=== PATIENT | female | born 1980 | race Caucasian/White ===

== ENCOUNTER 2023-02-09 09:36 | Emergency (ER) | payer BC, SELFPAY ==
[2023-02-09 09:50] VITALS: BP 148/85; PULSE 76; RESP 16; TEMP 36.6; O2SAT 99
--- NOTE | 2023-02-09 09:51 | ED.FEMALEGU ---
HPI - Female Genitourinary General Chief complaint: Upper Respiratory Infection Stated complaint: EARACHE/SWOLLEN GLAND Time Seen by Provider: 02/09/23 09:51 Source: patient Mode of arrival: ambulatory Limitations: no limitations History of Present Illness HPI Narrative: 42 year old female who present to express care with complaints of left earache and eft side of her neck feeling like her gland is swollen since Tuesday and yesterday her back started hurting across her flank area. Pateint reports history of UTI and pyelonephritis in the past and wants urine checked to see if she has infection.Pateint reports tht daughter had Flu B 2 weeks ago. She reports that her throat feels raspy also today. Patient has been taking Claritin D for her symptoms. Patient denies any known fevers. MD elicited complaint: UTI and other (left ear ache and left side of neck) Pertinent past history: other (past UTI) Onset (ago): day(s) (5 days on ear pain 1 day flank pain) Severity: moderate Severity scale (1-10): 3 Vaginal discharge: none Related Data Home Medications Medication Instructions Recorded Confirmed omeprazole 20 mg capsule,delayed 20 mg PO DAILY 02/09/23 02/09/23 release Allergies Allergy/AdvReac Type Severity Reaction Status Date / Time latex Allergy Unknown Rash Verified 02/09/23 09:47 Review of Systems Review of Systems: CONSTITUTIONAL: Denies fever, chills, or sweats.reports left ear pain and left side of neck and raspy throat CARDIOVASCULAR: Denies chest pain, palpitations, or edema. RESPIRATORY: Denies cough or dyspnea. GASTROINTESTINAL: Denies abdominal pain, nausea, vomiting, or diarrhea. GENITOURINARY: Reports no dysuria, frequency, urgency., states voiding small amount Reports flank pain no visible hematuria. SKIN: Denies rash or itching. MUSCULOSKELETAL: Denies back pain or myalgia. Reports CVA tenderness NEUROLOGIC: Denies headache All systems reviewed & are unremarkable except as noted in HPI and below PMFSH Past Medical History Medical History Endometriosis GERD (gastroesophageal reflux disease) Seasonal allergies Surgical History Surgical History H/O arthroscopic knee surgery (~1994) H/O dilation and curettage H/O laparoscopy Family History Family History Father Hypertension Mother Cancer Grandparent Heart problem Social History Social History Smoking status: Current every day smoker Tobacco type: cigarettes Alcohol intake: current Alcohol use details: socially Substance use: never Substance use type: does not use Gender identity (if verbalized by the patient): Female Agree to blood products: Yes Comments At time of signature, agree with nursing past medical, surgical, social and family history. There is no relevant family history pertinent to the presenting complaint Exam Narrative: GENERAL: Well-appearing, well-nourished, and in no acute distress. HEAD: Normocephalic, atraumatic. throat red with no exudates or swelling , TM normal with dull light reflex bilaterally ,no tragal tenderness. NECK: Supple.no lymphadenopathy CHEST: Clear to auscultation. No respiratory distress.SAO2 99% on room air HEART: Regular rate and rhythm. No murmur heard. Normal peripheral pulses. ABDOMEN: Soft, nontender, nondistended, normal active bowel sounds. Positive for CVA tenderness EXTREMITIES: Normal range of motion. No edema. SKIN: Warm, dry, no rash. NEURO: No focal deficits. Alert and oriented x3. Course Course Emergency Course: Patient is aware of diagnosis, understands and agrees to treatment plan.? Anticipatory guidance given.? Patient agrees to follow-up as directed and is aware of reasons to seek care at the emergency department. Portions of this shalom
== END 2023-02-09 10:35 | disposition home or self-care (01) ==
PROVIDERS: Emergency Provider Registered Nurse
DX: J06.9 Acute upper respiratory infection, unspecified (principal); Z20.822 Contact with and (suspected) exposure to COVID-19; F17.210 Nicotine dependence, cigarettes, uncomplicated; N80.9 Endometriosis, unspecified; K21.9 Gastro-esophageal reflux disease without esophagitis
CPT/HCPCS: 81003; 87081; 87426; 87804; 87880; 99213; C9803; G0463

== ENCOUNTER 2025-02-01 10:48 | Outpatient (CLI) | payer BC, SELFPAY ==
--- NOTE | ~2025-02-01 | MM_ITS ---
EXAMINATION: MM screening philip BI w yessenia HISTORY: Screening. TECHNIQUE: Craniocaudal and mediolateral oblique 3-D tomosynthesis images were obtained and synthetic 2-D images were generated. CAD analysis was submitted and interpreted. COMPARISON: None available. BREAST PARENCHYMAL COMPOSITION: Dense: The breast tissue is heterogeneously dense, which may obscure small masses. FINDINGS: There is an asymmetry in the left breast on the MLO view, just above the nipple line in the mid depth. Additionally on the left, there is an asymmetry with possible spicules/distortion seen on the craniocaudal view only, just medial to the nipple line. On the right, there is an asymmetry seen on the craniocaudal view only, Just medial to the nipple line and in the mid depth. There are no suspicious calcifications. There are no skin or nipple abnormalities identified. There is no adenopathy seen on the images submitted. IMPRESSION: 1. Bilateral findings as described. Regarding the mass/asymmetry on the left, On the left, ultrasound should be performed. I suspect that the masslike asymmetry on the MLO view corresponds to an intramammary lymph node laterally. Ultrasound is recommended at approximately 4:00 in the anterior to mid depth. 2. Bilateral asymmetries as described for which additional mammographic and possibly sonographic evaluation is recommended. BI-RADS: 0 - Incomplete - needs additional imaging evaluation and/or prior mammograms for comparison. Reviewed, dictated and finalized at location A. ER [facility] IMPRESSION: 1. Bilateral findings as described. Regarding the mass/asymmetry on the left, O n the left, ultrasound should be performed. I suspect that the masslike asymmet ry on the MLO view corresponds to an intramammary lymph node laterally. Ultraso und is recommended at approximately 4:00 in the anterior to mid depth. 2. Bilateral asymmetries as described for which additional mammographic and pos sibly sonographic evaluation is recommended. BI-RADS: 0 - Incomplete - needs additional imaging evaluation and/or prior mamm ograms for comparison.
--- OUTSIDE RECORDS SUMMARY | 2025-02-01 11:14 | XMS_ITS | Continuity of Care Document ---
Author Organization [facility] [employer], [facility] Address [address] [place] [address] Assessment No assessment recorded. Plan of Treatment Reminders Order Date Submit Date Provider Last Modified By Organization Details Last Modified Time Details Appointments Any 15 2025 01:00P M WALKER Craig Not available Not available Not available Lab None recorded. Referral None recorded. Procedures None recorded. Surgeries None recorded. Imaging None recorded. Medication Orders meclizine 25 mg tablet 2024 025 [facility] [employer] #[id number], [address], [place], [phone], 12/01/2024 05:01:49 losartan 50 mg tablet 2024 025 [email or web address] [employer] [id number], [address], [place], [id number], 11/14/2024 12:41:19 Patient TargetsNo targets recorded. Patient InstructionsNo instructions recorded. Reason for Referral None Reported. Problems Name Problem SNOMED Code Status Onset Date Resolution Date Notes Provider Name and Address Organization Details Recorded Time Essential hypertension 04476483 Active 2024 WALKER Craig [address], [place] [address], [place], [address], [facility] 15:41:52 Endometrium thickened 653328322 Active 2024 WALKER Craig [address], [address], [place], [address], [employer] 15:42:00 Hypertriglycer idemia 840120346 Active 2024 WALKER Craig [address], [address], [place], [address], [employer] [facility] 13:02:09 Bacterial sinusitis 923203849 Active 2024 WALKER Craig [address], [address], [place], [address], [employer] 13:02:49 Purulent bronchitis 89466010 Active 2024 Moshe Neves MD [address], [address], [place], [address], [employer] 10:09:28 Acute cough Active 2024 Moshe Neves MD [address], [address], [place], [address], [employer] 10:10:38 Seasonal allergy 708244468 Active 2024 Moshe Neves MD [address], [address], [place], [address], [employer] [facility] 10:11:34 Benign hypertension 05117383 Active 2024 Moshe Neves MD [address], [address] [place] [address], [place], [address], [employer] [facility] 10:33:41 Vertigo 493990067 Active 2024 WALKER Craig [address], [address], [place], [address], [employer] [facility] 12:36:50 Problem Notes None recorded. Procedures Surgical History Date Name Laterality Status Provider Name and Address Organization Details Recorded Time operative procedure on knee completed Kecia Dhillon RN [place] [employer] [facility] [employer] 09/06/2024 15:06:43 loop electrosurgical excision procedure completed Kecia Dhillon RN [facility] 09/06/2024 15:07:01 Imaging Results None recorded. Procedure Notes None recorded. Medical Equipment None Reported. Allergies Allergen ID Allergen Name Allergen Category Reaction Reaction Severity Criticality Documentation Date Start Date Code Code System Note Provider Name and Address Organization Details Recorded Time 63222 lisinopri l medicatio n Not available Not available Not available 11/14/2024 93570 RxNorm Kecia Dhillon RN [facility], [facility] [employer] [facility] 12:14:54 Medications Name Sig Start Date Stop Date Status Note LastModified by Organization Details LastModified Time losartan 50 mg tablet TAKE 1 TABLET BY MOUTH EVERY DAY DIRECTED active Not Available Not Available No t Available azithromyci n 250 mg tablet TAKE 2 TABLETS (500 MG) BY ORAL ROUTE ONCE DAILY FOR 1 DAY THEN 1 TABLET (250 MG) BY ORAL ROUTE ONCE DAILY FOR 4 DAYS 11/14 completed Not Available Not Available Not Available benzonatate 200 mg capsule Take 1 capsule 3 times a day by oral route as needed for 10 days. 11/08 completed Not Available Not Available Not Available Claritin 10 mg tablet Take 1 tablet every day by oral route as needed. active OTC Not Available Not Available No t Available lisinopril 20 mg tablet TAKE 1 TABLET BY MOUTH EVERY DAY DIRECTED 11/14 completed Not Available Not Available Not Available Medrol (Price) 4 mg tablets in a dose pack Take 1 dose pk every day by oral route as directed for 6 days. 11/04 completed Not Available Not Available Not Available ciprofloxac in 500 mg tablet TAKE 1 TABLET BY MOUTH EVERY 12 HOURS 09/06 completed Not Available Not Available Not Available meclizine 25 mg tablet Take 1 tablet 3 times a day by oral route as needed for 10 days. 12/01 completed Not Available Not Available Not Available lisinopril 10 mg tablet TAKE 2 TABLET BY MOUTH EVERY DAY 10/22 completed Not Available Not Available Not Available omeprazole 20 mg capsule,del ayed release Take 1 capsule every day by oral route. active Not Available Not Available No t Available albuterol sulfate HFA 90 mcg/actuati on aerosol inhaler INHALE 2 PUFFS BY MOUTH EVERY 6 HOURS FOR 15 DAYS NEEDED active Not Available Not Available No t Available fluticasone propionate 50 mcg/actuati on nasal spray,suspe nsion [place] 2 sprays every day by intranasa l route as directed for 30 days. 2024 active Not Available Not Available Not Avai lable amoxicillin 875 mg-potassiu m clavulanate 125 mg tablet TAKE 1 TABLET BY MOUTH EVERY 12 HOURS FOR 7 DAYS DIRECTED 11/14 completed Not Available Not Available Not Available Solu-Medrol (PF) 125 mg/2 mL solution for injection Take 125 mg by injection route for 1 day. 11/14 completed pt marquise well Not Available Not Available Not Available Vitals Date Recorded Body height Body mass index (BMI) Body weight Body temperature Heart rate Respiratory rate Oxygen saturation Pain severity - 0-10 verbal numeric rating [Score] - Reported Systolic And Diastolic Provider Name and Address Organization Details Last Updated DateTime 175.26 cm 30.3 kg/m2 02035.8 9 g 97.1 [degF] 82 /min 20 /min 97 % 0 140/90 mm[Hg] Kecia Dhillon RN [employer] 12:14:40 Social History Question Answer Notes LastModified by Organizat ion Details LastModified Time Tobacco Smoking Status Former Smoker Kecia Dhillon RN [facility], [employer] 09/06/2024 15:10:43 Do You Have An Advance Directive? No Information not available 09/06/2024 What Is Your Level Of Caffeine Consumption? Occasional Information not available 09/06/2024 In The 14 Days Before Symptom Onset, Have You Had Close Contact With A Laboratory-confir med COVID-19 While That Case Was Ill? No Information not available 09/06/2024 In The 14 Days Before Symptom Onset, Have You Had Close Contact With A Person Who Is Under Investigation For COVID-19 While That Person Was Ill? No Information not available 09/06/2024 What Type Of Diet Are You Following? REGULAR Information not available 09/06/2024 Have There Been Any Changes To Your Family Or Social Situation? No Information no t available 09/06/2024 Do You Use Insect Repellent Routinely? No Information not available 09/06/2024 Where Do You Live? SingleLevelHouse Information not available 09/06/2024 Do You Have A Medical Power Of Production Aide? No Information not available 09/06/2024 How Many Children Do You Have? 2 Information not available 09/06/2024 Do You Have Any Pets? Yes Information not available 09/06/2024 What Is Your Relationship Status? Information not available 09/06/2024 Do You Use Your Seat Belt Or Car Seat Routinely? Yes Information not available 09/06/2024 Do You Have Smoke And Carbon Monoxide Detectors In Your Home? Yes Information not available 09/06/2024 Are You Passively Exposed To Smoke? No Information no t available 09/06/2024 Are There Any Smokers In Your House? No Information not available 09/06/2024 Do You Participate In Social Media? Yes Information not available 09/06/2024 Do You Use Sunscreen Routinely? No Information not available 09/06/2024 Have You Recently Traveled Abroad? No Information not available 09/06/2024 Sex: Unknown Functional Status Question Answer Note LastModified by Organizat ion Details LastModified Time Do you use any illicit or recreational drugs? No Information not available 09/06/2024 What is your level of alcohol consumption? Occasional Information not available 09/06/2024 Are you currently employed? Yes Information not available 09/06/2024 What is your occupation? [employer] Information not available 09/06/2024 What is your exercise level? Occasional Information not available 09/06/2024 Mental Status Question Answer Note LastModified by Organization D etails LastModified Time Do you feel stressed (tense, restless, nervous, or anxious, or unable to sleep at night)? [id number] Information not available 09/06/2024 Family History Relationship Description Onset Age of this Age Resolved Age Notes LastModified by Organization Details LastModified Time Father Dementia Not available 09/06/2024 15:04:03 Mother Malignant melanoma Not available 2024 15:04:16 Maternal Aunt Endometrium thickened Not available 2024 15:04:57 Paternal Grandfather Pulmonary emphysema Not available 2024 15:05:23 Medical History Condition Response ENDOMETRIOSIS Y HEADACHES/MIGRAINES Y OTHER # 1 Y ANXIETY DISORDER Y HYPERTENSION Y Gynecological History Statement/Question Response Date of Last Pap Smear Current Control Method IUD Date of Last Colonoscopy Most Recent Mammogram Date of LMP Obstetrics History GPAL:G 0 P 0 0 0 0 Past Encounters Encounter ID Performer Location Encounter Start Date Encounter Closed Date Diagnosis/Indication Diagnosis SNOMED-CT Code Diagnosis ICD10 Code Diagnosis IMO Codes Diagnosis Note [id number] Mohse Neves MD [facility] [address] [place] [address] 10/22/2024 09:55:39 10/22/2024 10:28:48 Purulent bronchitis 45540943 J41.1 2688 Acute cough 0149854680 43767482 R05.0 2322007197 Seasonal allergy 2379586 04 J30.2 70922 Benign hypertension 1072 5009 I10 048628 BP diary education given. [id number] Moshe Neves MD [facility] [address] 11/14/2024 12:02:24 11/14/2024 12:44:30 Essential hypertension 42053537 I10 63162 Lisinopril causing cough, she will stop taking and switch to losartan Vertigo 903382441 R42 03731 Worse when allergies flare Seasonal allergy 9059172 04 J30.2 07972 Advised to d/c sudafed containing productsSh e is also taking flonase daily. Health Concerns Section Related Observation LastModified by Organization Detai ls LastModified Time None Recorded Concern Status LastModified by Organization Details LastModified Time None Recorded Payers Encounter Date Sequence Insurance Name Policy Number Policy [place] Covered Member ID [place] Member ID Guarantor Name 11/14/2024 1 [facility] ([facility] [id number] Tiffanie Anderson [id number] Tiffanie Anderson Notes Date Note Type Note Provider Name and Address Organization Details Recorded Time 11/14/2024 text/html Tiffanie Anderson is a 44 year old female patient here today for a persistent cough. She was seen for this on 10/22/[address] Neves and dx with purulent bronchitis. She completed abx and steroids at this time Notably, she began lisinopril on 08/29/24 She states she has been taking claritin D through the whole summer.She notes when she stops taking this, she will get JULIÁN ear congestion and vertigo. Miriam Garibay, [employer] [address], [address] [address], [place], [address], [facility] 11/14/2024 12:59:02 OBGyn Episode No OBEpisode recorded.
--- OUTSIDE RECORDS SUMMARY | 2025-02-01 11:14 | XMS_ITS | Data Portability ---
Author Organization [place] - [facility] [employer], Main Office Address [address] [place] [address] Assessment No assessment recorded. Plan of Treatment Reminders Order Date Submit Date Provider Last Modified By Organization Details Last Modified Time Details Appointments Any 15 2025 01:00P WALKER Monteiro Not available Not available Not available Lab lipid panel, serum 2024 025 [facility] ([facility]), [address] [place], [address], 09/27/2024 08:06:58 Referral None recorded. Procedures None recorded. Surgeries None recorded. Imaging None recorded. Medication Orders [facility] 25 mg tablet 2024 025 [id number], [address] [place], [place], [id number], 12/01/2024 05:01:49 losartan 50 mg tablet 2024 025 [facility]00180, [address] [place], [place], [id number], 11/14/2024 12:41:19 fluticaso ne propionat e 50 mcg/actua tion nasal spray,lyssa pension 2024 025 [facility] #[id number], [address] [place], [place], [id number], 10/22/2024 10:12:24 benzonata te 200 mg capsule 2024 025 [facility] #[id number], [address], [place], [place], [id number], 11/08/2024 05:01:26 Solu-Medr ol (PF) 125 mg/2 mL solution for injection 2024 [email or web address] Not available 11/14/2024 12:15:30 albuterol sulfate HFA 90 mcg/actua tion aerosol inhaler 2024 025 [facility] #07666, [address] [facility], [place], [place], [id number], 10/22/2024 10:14:27 Zithromax Z-Price 250 mg tablet [address] [facility]51088, [address], [place], [place], [id number], 11/14/2024 12:15:18 Medrol (Price) 4 mg tablets in a dose pack 2024 025 [facility] #06143, [address], [place], [place], [id number], 11/04/2024 05:01:39 lisinopri l 20 mg tablet 2024 025 [facility] #[id number], [address] [facility], [place], [place], [id number], 11/14/2024 12:40:58 amoxicill in 875 mg-potass ium clavulana te 125 mg tablet 2024 025 [email or web address] #36458, [address], [place], [place], [id number], 11/14/2024 12:15:14 Patient TargetsNo targets recorded. Patient InstructionsNo instructions recorded. Reason for Referral None Reported. Results Created Date Observation Date Name Description Value Unit Range Abnormal Flag Note LastModifiedBy Organization Detail LastModifiedTime Result Notes None recorded. Problems Name Problem SNOMED Code Status Onset Date Resolution Date Notes Provider Name and Address Organization Details Recorded Time Essential hypertension 53362919 Active 2024 WALKER Craig [address], [address], [place], [address], [employer] 15:41:52 Endometrium thickened 460872275 Active 2024 WALKER Craig [address], [address], [place], [address], [employer] 15:42:00 Hypertriglycer idemia 316050078 Active 2024 WALKER Craig [address], [address], [place], [address], [employer] 13:02:09 Bacterial sinusitis 066182865 Active 2024 WALKER Craig [address], [address], [place], [address], [employer] 13:02:49 Purulent bronchitis 18805213 Active 2024 Moshe Neves MD [address], [address], [place], [address], [employer] 5 10:09:28 Acute cough Active 2024 Moshe Neves MD [address], [address], [place], [address], [employer] 5 10:10:38 Seasonal allergy 440499041 Active 2024 Moshe Neves MD [address], [address], [place], [address], [employer] 5 10:11:34 Benign hypertension 86738771 Active 2024 Moshe Neves MD [address], [address], [place], [address], [facility] [employer] [facility] 10:33:41 Vertigo 761040947 Active 2024 WALKER Craig [address], [address], [place], [address], [facility] [employer] [facility] 12:36:50 Problem Notes None recorded. Procedures Surgical History Date Name Laterality Status Provider Name and Address Organization Details Recorded Time operative procedure on knee completed Kecia Dhillon RN [facility] [employer] [facility] 09/06/2024 15:06:43 loop electrosurgical excision procedure completed Kecia Dhillon RN [facility] [employer] [facility] 09/06/2024 15:07:01 Imaging Results None recorded. Procedure Notes None recorded. Medical Equipment None Reported. Allergies Allergen ID Allergen Name Allergen Category Reaction Reaction Severity Criticality Documentation Date Start Date Code Code System Note Provider Name and Address Organization Details Recorded Time 74261 lisinopri l medicatio n Not available Not available Not available 11/14/2024 19646 RxNorm Kecia Dhillon RN null, [facility] [employer] [facility] 12:14:54 Medications Name Sig Start Date Stop [...] propionate 50 mcg/actuati on nasal spray,suspe nsion [place] 2 sprays every day by intranasa l [...] Available Not Available Vitals Date Recorded Body weight Body mass index (BMI) Body height Body temperature Heart rate Respiratory rate Oxygen saturation Pain severity - 0-10 verbal numeric rating [Score] - Reported Systolic And Diastolic Provider Name and Address Organization Details Last Updated DateTime 5 36149.1 9 g 30.3 kg/m2 175.26 cm 97.5 [degF] 85 /min 20 /min 96 % 0 172/102 mm[Hg] Kecia Dhillon RN [place] - [facility] 5 15:09:20 Date Recorded Body height Body mass index (BMI) Body weight Body temperature Heart rate Respiratory rate Oxygen saturation Pain severity - 0-10 verbal numeric rating [Score] - Reported Systolic And Diastolic Provider Name and Address Organization Details Last Updated DateTime 5 175.26 cm 30.2 kg/m2 17342.2 4 g 97.3 [degF] 82 /min 20 /min 98 % 5 142/96 mm[Hg] Kecia Dhillon RN [facility] [employer] [facility] 12:38:05 Date Recorded Oxygen saturation Provider Name and Address Organization Details Last Updated DateTime 10/22/2024 94 % Jean-Pierre Mercado [address] [facility], [facility] [address], [place], [address], [facility] [employer] [facility] 10/22/2024 10:33:15 Date Recorded Body height Body mass index (BMI) Body weight Body temperature Heart rate Systolic And Diastolic Provider Name and Address Organization Details Last Updated DateTime 175.26 cm 29.7 kg/m2 50722.0 7 g 97.2 [degF] 93 /min 144/100 mm[Hg] Mone Navarro RN [facility] [employer] [facility] 10:04:28 Date Recorded Body height Body mass index (BMI) Body weight Body temperature Heart rate Respiratory rate Oxygen saturation Pain severity - 0-10 verbal numeric rating [Score] - Reported Systolic And Diastolic Provider Name and Address Organization Details Last Updated DateTime 175.26 cm 30.3 kg/m2 10910.8 9 g 97.1 [degF] 82 /min 20 /min 97 % 0 140/90 mm[Hg] Kecia Dhillon RN [facility] [employer] [facility] 12:14:40 Social History Question Answer Notes LastModified by Organizat ion Details LastModified Time Tobacco Smoking Status Former Smoker Kecia Dhillon RN [facility] 09/06/2024 15:10:43 Do You Have An Advance [...] Do You Have A Medical Power Of Powder Blender? No Information not available 09/06/2024 How Many [...] anxious, or unable to sleep at night)? [id number] Information not available 09/06/2024 Family History Relationship Description Onset Age of this Age Resolved Age Notes LastModified by Organization Details LastModified Time Father Dementia Not available 09/06/2024 15:04:03 Mother Malignant melanoma Not available 2024 15:04:16 Maternal Aunt Endometrium thickened Not available 2024 15:04:57 Paternal Grandfather Pulmonary emphysema Not available 2024 15:05:23 Medical History Condition Response ENDOMETRIOSIS Y OTHER # 1 Y HEADACHES/MIGRAINES Y HYPERTENSION Y ANXIETY DISORDER Y Gynecological History Statement/Question Response Date of Last Pap Smear Current Control Method IUD Date of Last Colonoscopy Most Recent Mammogram Date of LMP Obstetrics History GPAL:G 0 P 0 0 0 0 Past Encounters Encounter ID Performer Location Encounter Start Date Encounter Closed Date Diagnosis/Indication Diagnosis SNOMED-CT Code Diagnosis ICD10 Code Diagnosis IMO Codes Diagnosis Note [id number] Moshe Neves MD [address] [address] 09/06/2024 14:40:30 09/06/2024 17:05:51 Physical examination 2937359 Z00.00 103386 [facility] reviewedDi scussed diet and exercisePa tient questions answered Essential hypertension 47010508 I10 98862 Will continue to monitor BP at homeWill increase lisinopril to 20 mg daily Endometrium thickened 44 1582859 R93.89 [id number] Managed by OBGYN [id number] Moshe Neves MD [facility] [address] [place] [address] 09/20/2024 12:23:11 09/20/2024 13:59:51 Essential hypertension 74939421 I10 63635 Will continue to monitor BP at homeWill increase lisinopril to 20 mg daily Hypertriglyceridemia 302 325813 E78.1 799893 Not fasting for last labs Bacterial sinusitis 7034 82583 J32.9 B96.89 4044068 x 2 weeks [id number] Moshe Neves MD [facility]_[address] [address] 10/08/2024 10:05:46 10/10/2024 09:51:25 [id number] Moshe Neves MD [facility]_[address] [address] 10/22/2024 09:55:39 10/22/2024 10:28:48 Purulent bronchitis 21788198 J41.1 2688 Acute cough 9375904050 22941690 R05.8 2628957270 Seasonal allergy 8539751 04 J30.2 91296 Benign hypertension 1072 5009 I10 921196 BP diary education given. [id number] Moshe Neves MD [facility]_[address] [address] 11/14/2024 12:02:24 11/14/2024 12:44:30 Essential hypertension 52691965 I10 72647 Lisinopril causing cough, she will stop taking and switch to losartan [employer]igo 686158735 R42 91756 Worse when allergies flare Seasonal allergy 9573649 04 J30.2 74308 Advised to d/c sudafed containing productsSh e is also taking flonase daily. Health Concerns Section Related Observation LastModified by Organization Detai ls LastModified Time None Recorded Concern Status LastModified by Organization Details LastModified Time None Recorded Advance Directives Directive N: Payers Insurance Date Sequence Insurance Name Policy Number Policy Jefferson Covered Member ID Jefferson Member ID Guarantor Name 09/06/2024 1 [facility] - DOS PRIOR TO 2020 (MEDICAID REPLACEMENT - HMO) Tiffanie Anderson [id number] Tiffanie Kelin Anderson 11/11/2024 1 [facility] (PPO) [id number] Tiffanie Anderson [id number] Tiffanie Anderson Notes Date Note Type Note Provider Name and Address Organization Details Recorded Time 09/06/2024 text/html Tiffanie Anderson is a 44 year old female patient here today to establish care. She has a WWE last week at [facility] and was told her BP was took high. They initiated lisinopril 10 mg daily. Since taking lisinopril, her BP has ranged 120s-150s/80s-100s. We will increase to lisinopril 20 mg PO daily. She will take 2 of her 10 mg tabs.She notes decreased headaches since starting the medication.Prior to starting lisinopril, she was having daily headaches, dizziness, nausea, and tinnitus. She states she can feel when her BP is high. She states at her WWE she was told she had a risk of diabetes following her blood work. She has a history of endometriosis. She does get vertigo on occasion. She takes claritin daily to help with this. Flu shot: declinesCOVID vaccines: x1Tdap: unsureMammogram: scheduledWWE: olonoscopy next year WALKER Craig [address] [employer], [place], [address], [employer] 09/06/2024 16:54:56 09/20/2024 text/html Tiffanie Anderson is a 44 year old female patient here today for a 1 month FU Concerns with sinus symptoms x 2 weeks. Congestion, headaches, full ears. History of hypertension. This is _ controlled. Patient does not check BP readings at home.BP on arrival today is 142/96.Patient declines headaches, tinnitus, light headedness, fatigue. Recent labs indicated prediabetes and elevated triglycerides. She was not fasting for these labs. Flu shot: declinesCOVID vaccines: x1Tdap: unsureMammogram: scheduledWWE: 4Colonoscopy next year WALKER Craig [address], [address], [place], [address], [employer] 09/20/2024 14:08:02 10/22/2024 text/html ACV: C/o cough, congestion, greenish sputum, fatigue for last 1 week. Pt has been doing otc meds, but still not getting better. Pt gets this every few months. Pt has not taken her BP med today yet. Moshe Neves MD [address], [address], [place], [address], [facility] [employer] [facility] 10/22/2024 10:35:26 11/14/2024 text/html Tiffanie Anderson is a 44 [...] JULIÁN ear congestion and vertigo. Miriam Garibay, CREDIT CARD SPECIALIST [address] [facility], [address], [place], [address], [employer] 11/14/2024 12:59:02 OBGyn Episode No OBEpisode recorded.
--- OUTSIDE RECORDS SUMMARY | 2025-02-01 11:14 | XMS_ITS | Clinical Summary ---
Author Organization [facility] Care Team Providers Care Assembling Fabricator Name Role Phone Unavailable Primary Care Provider Unavailabl e Social History Tobacco Use Types Packs/Day Years Used Date Smoking Tobacco: Never Assessed Comments Unknown Sex and Gender Information Value Date Recorded Sex Assigned at Not on file Legal Sex Female 9:08 PM CDT Gender Identity Not on file Sexual Orientation Not on file Plan of Treatment Not on file
--- OUTSIDE RECORDS SUMMARY | 2025-02-01 11:14 | XMS_ITS | Data Portability ---
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 Patient will come back in a year unless there are new symptoms. [email or web address] Not available 08/25/2023 16:13:30 08/29/2024 08/29/2024 Annual gynecological exam performed. Patient will come back in a year unless there are new symptoms. [email or web address] Not available 08/29/2024 16:10:27 Plan of Treatment Reminders Order Date Submit Date Provider Last Modified By Organization Details Last Modified Time Details Appointments None recorded. Lab TSH, serum or plasma 2024 025 [facility] (Lab), [address], [place], [address], 5 07:34:28 CBC w/ auto diff 2024 025 [facility] (Lab), [address], [place], [address], 5 07:34:29 lipid panel, blood 2024 025 [facility] (Lab), [address], [place], [address], 5 07:34:30 CMP, serum or plasma 2024 025 [facility] (Lab), [address], [place], [address], 5 07:34:29 HbA1c (hemoglobin A1c), blood 2024 025 [facility] (Lab), [address], [place], [address], 5 07:34:30 CT + NG + TV, RNA, unspecified specimen 2024 025 [facility] (Lab), [address], [place], [address], 5 12:52:47 culture, urine 2023 024 [facility] (Lab), [address], [place], [address], 4 07:36:30 urinalysis, dipstick 2023 024 [email or web address] [place], [address], [address], [place], [address], 4 11:04:49 hormone panel, serum or plasma 2023 024 [facility] (Lab), [address], [place], [address], 4 09:49:52 Referral None recorded. Procedures None recorded. Surgeries None recorded. Imaging MAMMO, screening, digital, bilateral 2024 025 [email or web address] [facility], [address], [place], [address], 5 10:38:01 MAMMO, screening, digital, bilateral 2023 024 [facility], [address], [place], [address], 4 05:01:13 Medication Orders lisinopril 10 mg tablet 2024 025 [id number], [address], [place], [place], [id number], 5 16:38:06 nitrofurant oin monohydrate /macrocryst als 100 mg capsule 2023 025 [facility] #[id number], [address], [place], [place], [id number], 5 16:11:11 Macrobid 100 mg capsule 2023 024 [email or web address] [facility] #[id number], [address] [facility], [place], [place], [id number], 5 16:10:33 Patient TargetsNo targets recorded. Patient InstructionsNo instructions recorded. Reason for Referral None Reported. Results Created Date Observation Date Name Description Value Unit Range Abnormal Flag Note LastModifiedBy Organization Detail LastModifiedTime 08/25/19 24 08/25/2023 FSH, LH, ESTRA DIOL estradiol 84.7 pg/mL This assay was perfo rmed using [employer] ratio n reage nts and test kits. Value s obtai elizabeth with other assay metho ds or kits canno t be used inter martins eably . Femal e Estra diol Range s: Folli cular phasE 12.4- 233 pg/mL Ovula tion phasE 41.0- 398 pg/mL Lutea l phasE 22.3- 341 pg/mL Postm enopa usal <5-13 8 pg/mL Healt hy Pregn ant Women 1st Trime ster 154-3 243 pg/mL 2nd Trime ster 1561- 46716 pg/mL 3rd Trime ster 8525- >3000 0 pg/mL Not Available [facility] (Lab) [address], [place], [address], 08/26/2023 09:49:51 08/25/19 24 08/25/2023 FSH, LH, ESTRA DIOL FSH 6.5 mIU/m L This assay was perfo rmed using [employer] ratio n reage nts and test kits. Value s obtai elizabeth with other assay metho ds or kits canno t be used inter martins eably . Femal es Folli cular : 3.5-1 2.5 mIU/m L Ovula tion: 4.7-2 1.5 mIU/m L Lutea l: 1.7-7 .7 mIU/m L Postm enopa use: 25.8- 134.8 mIU/m L Not Available [facility] (Lab) [address] [facility], [place], [address], 08/26/2023 09:49:51 08/25/19 24 08/25/2023 FSH, LH, ESTRA DIOL LH 4.2 mIU/m L This assay was perfo rmed using [employer] ratio n reage nts and test kits. Value s obtai elizabeth with other assay metho ds or kits canno t be used inter [facility] . Femal es Mid-F ollic ular: 2.4-1 2.6 mIU/m L Mid-C ycle: 14.0- 95.6 mIU/m L Mid-L uteal : 1.0-1 1.4 mIU/m L Postm enopa use: 7.7-5 8.5 mIU/m L Not Available [facility] (Lab) [address] [facility], [place], [address], 08/26/2023 09:49:51 08/25/19 24 08/25/2023 IMAGE GUIDE D PAP AND HPV REGAR DLESS image guided Pap, HPV regardless of Pap result SEE RESULT S BELOW CASE REPOR T: Cytol ogy Gynec ologi claire Repor t Case: [id number] Autho everardo g Provi siri: Dafne Kang, PATIENT SERVICES COORDINATOR Colle cted: 08/24 1712 Order ing Locat ion: [place] Path[facility] Recei sreedhar: 08/25 0841 First Karlos n: Domitila Argueta ica Speci men: Karlos feliz Pap - Image d, Cervi x STATE MENT OF ADEQU ACY: Satis facto ry for evalu ation Trans forma tion zone compo nent prese nt ----- ----- ----- ----- ----- ----- ----- ----- ----- ----- ----- ----- ----- ----- ----- ----- ----- ---- FINAL DIAGN OSIS: Negat chevy for Intra epith elial Debbie ramírez or Matt gaspar ([facility]) . Shift in kathryn sugge stive of bacte rial vagin osis. Elect rich toribio by Domitila Argueta ica on 2023 at 11:00 AM ----- ----- ----- ----- ----- ----- ----- ----- ----- ----- ----- ----- ----- ----- ----- ----- ----- ---- HPV RESUL TS: HPV mRNA E6/E7 : No HPV mRNA Detec lorna NOTE: This high risk HPV mRNA assay detec ts fourt een high- risk HPV types (16, 18, 31, 33, 35, 39, 45, 51, 52, 56, 58, 59, 66, 68) witho ut diffe renti ation . COMME NT: This speci men was revie wed by a Cytot echno logis t and/o r Patho logis t (as indic ated in this repor t) after evalu ation using the Thinp rep Imagi ng Syste m. CLINI CLAIRE INFOR MATIO N: Menst rual Statu s: LMP (if appli cable ): Clini claire Histo ry/Pr eviou s Pap: Type of Neopl naty (if appli cable ): Signi fican t Clini claire Findi ngs: Other Histo ry: Hormo junior (if appli cable ): PAP EDUCA JEMIMA L NOTE: The Pap Test is a scree tray test with an inher ent false negat chevy rate. Liqui d-bas ed sampl ing may decre ase, but will not elimi alanis, false negat chevy resul ts. A negat chevy resul t does not precl ude the prese nce and/o r devel opmen t of disea se, since the prese nce of abnor mal cells in the sampl e depen ds on the locat ion of the lesio n and sampl ing techn ique. Sj nued regul ar scree tray is the best metho d of cance r preve ntion . If repor lorna cytol ogic findi ng do not corre late with physi claire and/o r histo rical findi ngs, furth er inves tigat ion is recom henry d, as clini mare gallegos nted. Not Available [facility] (Lab) [address] [facility], [place], [address], 08/28/2023 12:03:57 10/25/19 24 10/25/2023 CULTU RE: URINE result report SEE RESULT S BELOW abnormal Test: Cultu re: Urine Speci men Sourc e: Urine - Clean Catch Speci men Type: Urine Speci men Date: 2023 1039 Resul t Date: 2023 0721 Resul t Statu s: Final resul t Abnor mal: Yes Resul anthony Lab: [facility] [address] [facility] [address] Tel: CULTU RE ----- ----- ----- --- 25,00 0-50, 000 CFU/m l [place] a coli (Abno rmal) ALVIN PTIBI LITY ----- ----- ----- --- E[place] a coli METHO D MADAY ----- ----- ----- ----- ----- ---- ----- ----- ----- ----- ----- AMPIC ILLIN <=8 ug/mL Susce ptibl e AMPIC ILLIN /SULB ACTAM <=4 ug/mL Susce ptibl e AZTRE ONAM <=4 ug/mL Susce ptibl e CEFAZ OSCAR <=2 ug/mL Susce ptibl e CEFEP TERRY <=2 ug/mL Susce ptibl e CEFTA ZIDIM E <=1 ug/mL Susce ptibl e CEFTR IAXON E <=1 ug/mL Susce ptibl e CIPRO FLOXA ERNESTO <=0.2 5 ug/mL Susce ptibl e GENTA MICIN <=2 ug/mL Susce ptibl e LEVOF LOXAC IN <=0.5 ug/mL Susce ptibl e MEROP ENEM <=1 ug/mL Susce ptibl e NITRO FURAN TOIN <=32 ug/mL Susce ptibl e PIPER ACILL IN/TA ZOBAC MENDOZA <=8 ug/mL Susce ptibl e TOBRA MYCIN <=2 ug/mL Susce ptibl e TRIME THOPR IM/FRIAS LFAME THOXA ZOLE <=0.5 ug/mL Susce ptibl e Not Available [facility] (Lab) [address] [facility], [place], [address], 10/28/2023 08:25:58 10/25/19 24 10/25/2023 urina lysis , dipst ick Leukocytes ++ Not Available [facility] [address], [place], [address], 10/25/2023 11:04:23 10/25/19 24 10/25/2023 urina lysis , dipst ick Nitrite + Not Available [facility] [address], [place], [address], 10/25/2023 11:04:23 10/25/19 24 10/25/2023 urina lysis , dipst ick Protein + Not Available [facility] [address], [place], [address], 10/25/2023 11:04:23 10/25/19 24 10/25/2023 urina lysis , dipst ick pH 5 Not Available [facility] [address], [place], [address], 10/25/2023 11:04:23 10/25/19 24 10/25/2023 urina lysis , dipst ick Blood +++ Not Available [facility] [address], [place], [address], 10/25/2023 11:04:23 10/25/19 24 10/25/2023 urina lysis , dipst ick Specific [place] 1.[address] [facility] [address], [place], [address], 10/25/2023 11:04:23 02/21/20 24 02/21/2024 CULTU RE: URINE result report SEE RESULT S BELOW Test: Cultu re: Urine Speci men Sourc e: Urine - Clean Catch Speci men Type: Urine Speci men Date: 02/20 1632 Resul t Date: 02/22 0632 Resul t Statu s: Final resul t Abnor mal: No Resul ting Lab: [facility] [address] [facility] [address] Tel: CULTU RE ----- ----- ----- --- No growt h in 1 day (dete ction level of 10,00 0 colon ies / ml.) Not Available [facility] (Lab) [address] [place], [address], 02/23/2024 07:36:30 08/30/19 25 08/29/2024 TSH, REFLE X FREE T4 TSH 2.58 uIU/m L 0.30-5 .33 Not Available [facility] (Lab) [address] [place], [address], 08/30/2024 07:34:28 08/30/19 25 08/29/2024 CBC W/DIF F WBC 11.0 10'3/ uL 3.5-10 .5 high Not Available [facility] (Lab) [address], [place], [address], 08/30/2024 07:34:29 08/30/19 25 08/29/2024 CBC W/DIF F RBC 4.54 10'6/ uL (based on docume nted legal sex) 3.80-5 .20 Not Available [facility] (Lab) [address], [place], [address], 08/30/2024 07:34:29 08/30/19 25 08/29/2024 CBC W/DIF F HGB 12.6 g/dL (based on docume nted legal sex) 11.6-1 5.4 Not Available [facility] (Lab) [address], [place], [address], 08/30/2024 07:34:29 08/30/19 25 08/29/2024 CBC W/DIF F HCT 39.4 % (based on docume nted legal sex) 34.0-4 5.0 Not Available [facility] (Lab) [address], [place], [address], 08/30/2024 07:34:29 08/30/19 25 08/29/2024 CBC W/DIF F MCV 86.8 fL 80.0-9 9.0 Not Available [facility] (Lab) [address], [place], [address], 08/30/2024 07:34:29 08/30/19 25 08/29/2024 CBC W/DIF F MCH 27.8 pg 27.0-3 4.0 Not Available [facility] (Lab) [address] [place], [address], 08/30/2024 07:34:29 08/30/19 25 08/29/2024 CBC W/DIF F MCHC 32.0 g/dL 32.0-3 5.5 Not Available [facility] (Lab) [address], [place], [address], 08/30/2024 07:34:29 08/30/19 25 08/29/2024 CBC W/DIF F RDW 13.2 % 11.0-1 5.0 Not Available [facility] (Lab) [address] [facility], [place], [address], 08/30/2024 07:34:29 08/30/19 25 08/29/2024 CBC W/DIF F plt 338 10'3/ uL 150-40 0 Not Available [facility] (Lab) [address], [place], [address], 08/30/2024 07:34:29 08/30/19 25 08/29/2024 CBC W/DIF F MPV 10.7 fL 8.8-12 .1 Not Available [facility] (Lab) [address] [facility], [place], [address], 08/30/2024 07:34:29 08/30/19 25 08/29/2024 CBC W/DIF F NRBC's 0.0 % 0.0 Not Available [facility] (Lab) [address], [place], [address], 08/30/2024 07:34:29 08/30/19 25 08/29/2024 CBC W/DIF F absolute NRBCs 0.0 10'3/ uL no refere nce range establ ished Not Available [facility] (Lab) [address] [facility], [place], [address], 08/30/2024 07:34:29 08/30/19 25 08/29/2024 CBC W/DIF F neutrophils 62.6 % 34.0-7 3.0 Not Available [facility] (Lab) [address], [place], [address], 08/30/2024 07:34:29 08/30/19 25 08/29/2024 CBC W/DIF F lymphocytes 29.9 % 15.0-5 0.0 Not Available [facility] (Lab) [address] [facility], [place], [address], 08/30/2024 07:34:29 08/30/19 25 08/29/2024 CBC W/DIF F monocytes 5.6 % 1.0-15 .0 Not Available [facility] (Lab) [address] [facility], [place], [address], 08/30/2024 07:34:29 08/30/19 25 08/29/2024 CBC W/DIF F eosinophils 1.2 % 0.0-8. 0 Not Available [facility] (Lab) [address] [facility], [place], [address], 08/30/2024 07:34:29 08/30/19 25 08/29/2024 CBC W/DIF F basophils 0.3 % 0.0-2. 0 Not Available [facility] (Lab) [address] [facility], [place], [address], 08/30/2024 07:34:29 08/30/19 25 08/29/2024 CBC W/DIF F immature granulocytes 0.4 % no define d refere nce range Immat ure Granu locyt es (IG) repre sents autom ated enume ratio n of Metam yeloc ytes, Myelo cytes and Promy elocy an when IG is < 5%. Blast s are not inclu ded in IG and repor lorna separ ately if prese nt. Not Available [facility] (Lab) [address] [place], [address], 08/30/2024 07:34:29 08/30/19 25 08/29/2024 CBC W/DIF F absolute neutrophils 6.9 10'3/ uL 1.5-8. 0 Not Available [facility] (Lab) [address] [facility], [place], [address], 08/30/2024 07:34:29 08/30/19 25 08/29/2024 CBC W/DIF F absolute lymphocytes 3.3 10'3/ uL 1.0-4. 0 Not Available [facility] (Lab) [address] [facility], [place], [address], 08/30/2024 07:34:29 08/30/19 25 08/29/2024 CBC W/DIF F absolute monocytes 0.6 10'3/ uL 0.2-1. 0 Not Available [facility] (Lab) [address] [facility], [place], [address], 08/30/2024 07:34:29 08/30/19 25 08/29/2024 CBC W/DIF F absolute eosinophils 0.1 10'3/ uL 0.0-0. 6 Not Available [facility] (Lab) [address] [facility], [place], [address], 08/30/2024 07:34:29 08/30/19 25 08/29/2024 CBC W/DIF F absolute basophils 0.0 10'3/ uL 0.0-0. 3 Not Available [facility] (Lab) [address] [facility], [place], [address], 08/30/2024 07:34:29 08/30/19 25 08/29/2024 CBC W/DIF F absolute immature granulocytes 0.0 10'3/ uL 0.00-0 .10 Refer ence range s for nonbi nary/ inter sex or unspe cifie d gende r patie nts have not been estab lishe d. Plesumit e refer to the flipo wing table for range s estab lishe d for cisge nder patie nts and evalu ate in the clini claire paz xt of the indiv idual patie nt: https ://bala cintron book. nm.or g/gen derx Not Available [facility] (Lab) [address] [facility], [place], [address], 08/30/2024 07:34:29 08/30/19 25 08/29/2024 CMP(C OMPRE HENSI VE METAB OLIC PANEL ) sodium 137 mmol/ L 133-14 6 Not Available [facility] (Lab) [address] [facility], [place], [address], 08/30/2024 07:34:29 08/30/19 25 08/29/2024 CMP(C OMPRE HENSI VE METAB OLIC PANEL ) potassium 4.2 mmol/ L 3.5-5. 1 Not Available [facility] (Lab) [address] [facility], [place], [address], 08/30/2024 07:34:29 08/30/19 25 08/29/2024 CMP(C OMPRE HENSI VE METAB OLIC PANEL ) chloride 102 mmol/ L 98-107 Not Available [facility] (Lab) [address] [facility], [place], [address], 08/30/2024 07:34:29 08/30/19 25 08/29/2024 CMP(C OMPRE HENSI VE METAB OLIC PANEL ) carbon dioxide 30 mmol/ L 21-31 Not Available [facility] (Lab) [address] [facility], [place], [address], 08/30/2024 07:34:29 08/30/19 25 08/29/2024 CMP(C OMPRE HENSI VE METAB OLIC PANEL ) anion gap 5 mmol/ L 4-13 Not Available [facility] (Lab) [address] [facility], [place], [address], 08/30/2024 07:34:29 08/30/19 25 08/29/2024 CMP(C OMPRE HENSI VE METAB OLIC PANEL ) blood urea nitrogen 14 mg/dL 7-25 Not Available [facility] (Lab) [address] [facility], [place], [address], 08/30/2024 07:34:29 08/30/19 25 08/29/2024 CMP(C OMPRE HENSI VE METAB OLIC PANEL ) creatinine 1.11 mg/dL 0.60-1 .30 Not Available [facility] (Lab) [address] [facility], [place], [address], 08/30/2024 07:34:29 08/30/19 25 08/29/2024 CMP(C OMPRE HENSI VE METAB OLIC PANEL ) egfrcr (CKD-epi 2020) 63 mL/mi n/1.7 3_m2 >=60 Not Available [facility] (Lab) [address] [facility], [place], [address], 08/30/2024 07:34:29 08/30/19 25 08/29/2024 CMP(C OMPRE HENSI VE METAB OLIC PANEL ) calcium 10.2 mg/dL 8.3-10 .5 Not Available [facility] (Lab) [address] [facility], [place], [address], 08/30/2024 07:34:29 08/30/19 25 08/29/2024 CMP(C OMPRE HENSI VE METAB OLIC PANEL ) glucose 94 mg/dL 70-100 Not Available [facility] (Lab) [address] [facility], [place], [address], 08/30/2024 07:34:29 08/30/19 25 08/29/2024 CMP(C OMPRE HENSI VE METAB OLIC PANEL ) protein, total 6.9 g/dL 6.4-8. 3 Not Available [facility] (Lab) [address] [facility], [place], [address], 08/30/2024 07:34:29 08/30/19 25 08/29/2024 CMP(C OMPRE HENSI VE METAB OLIC PANEL ) albumin 4.5 g/dL 3.5-5. 0 Not Available [facility] (Lab) [address] [facility], [place], [address], 08/30/2024 07:34:29 08/30/19 25 08/29/2024 CMP(C OMPRE HENSI VE METAB OLIC PANEL ) ALT 13 units /L 9-43 Not Available [facility] (Lab) [address] [place], [address], 08/30/2024 07:34:29 08/30/19 25 08/29/2024 CMP(C OMPRE HENSI VE METAB OLIC PANEL ) alkaline phosphatase 62 units /L 34-104 Not Available [facility] (Lab) [address] [facility], [place], [address], 08/30/2024 07:34:29 08/30/19 25 08/29/2024 CMP(C OMPRE HENSI VE METAB OLIC PANEL ) AST 14 units /L 13-39 Not Available [facility] (Lab) [address] [facility], [place], [address], 08/30/2024 07:34:29 08/30/19 25 08/29/2024 CMP(C OMPRE HENSI VE METAB OLIC PANEL ) bilirubin, total 0.3 mg/dL 0.2-1. 2 Not Available [facility] (Lab) [address] [place], [address], 08/30/2024 07:34:29 08/30/19 25 08/29/2024 LIPID PANEL ,AMA (LDL- CALC) total cholesterol 225 mg/dL 0-199 high Not Available [facility] (Lab) [address] [place], [address], 08/30/2024 07:34:29 08/30/19 25 08/29/2024 LIPID PANEL ,AMA (LDL- CALC) triglyceride s 535 mg/dL 0-150 high NCEP Refer ence Value s for Trigl yceri fabian: Cici l: <150 mg/dL Borde rline High: 150 - 199 mg/dL High: 200 - 499 mg/dL Very High: >/= 500 mg/dL Not Available [facility] (Lab) [address] [place], [address], 08/30/2024 07:34:29 08/30/19 25 08/29/2024 LIPID PANEL ,AMA (LDL- CALC) HDL cholesterol 44 mg/dL >40 Not Available [facility] (Lab) [address] [place], [address], 08/30/2024 07:34:29 08/30/19 25 08/29/2024 LIPID PANEL ,AMA (LDL- CALC) LDL cholesterol . Trigl yceri fabian >=400 ; Unabl e to calcu late LDL. Cutof f value s recom henry d by the Natio nal Ana stero l Educa tion Progr am: AUGUSTINA ABLE: Ana stero l <200 mg/dL LDL <100 mg/dL BORDE RLINE : Ana stero l 200-2 39 mg/dL LDL 101-1 59 mg/dL HIGHE R RISK: Ana stero l >240 mg/dL LDL >160 mg/dL , HDL <40 mg/dL Not Available [facility] (Lab) [address] [place], [address], 08/30/2024 07:34:29 08/30/19 25 08/29/2024 LIPID PANEL ,AMA (LDL- CALC) non-HDL cholesterol 181 mg/dL no refere nce range A reaso nable goal for non-H DL ana stero l is one that is 30 mg/dL highe r than the LDL ana stero l goal. Not Available [facility] (Lab) [address] [place], [address], 08/30/2024 07:34:29 08/30/19 25 08/29/2024 LIPID PANEL ,AMA (LDL- CALC) chol/HDL ratio 5.1 . 0.0-5. 0 high On June 29, 2022, [facility] labor atori daniella martins ed the equat ion for calcu latin g estim ated low-d ensit y lipop rotei n-cho leste rol (LDL- C) from the Fried andrew equat ion to the Marcela darrell/[facility] equat ion. This new equat ion is only valid for lipid panel s with trigl yceri fabian < 400 mg/dL . Studi es have demon brett ed that this new equat ion will impro ve the accur acy of LDL-C , espec ially in scena murray when LDL-C ashleigh ntrat ions are relat ively low (< 100 mg/dL ), trigl yceri fabian are eleva lorna, or patie nt is non-f astin g. Refer ences : - Marcela ramírez, Miguel Angel Glasgow, Jason Parekh , Henny worrell, Rush Jacinto, Rush schuster, Maximiliano Ma. [facility] , and rBent Butler . 2013. Comp ariso n of a Novel Metho d vs the Fried andrew Equat ion for Estim ating Low-D ensit y Lipop rotei n Ana stero l Level s from the Stand ora Lipid Proftorsten priest. ETHEL: The Journ al of the Ameri can Medic al Assoc iatio n 310 (19): 2060- . - Alee goff V, Nikia J, Javier goff A, Ranulfo M, Lexa webb R, Bello goff E, [facility] RS, Luke SR, Marcela ramírez SS. Fast ing Versu s Nonfa sting and Low-D ensit y Lipop rotei n Ana stero l Accur acy. Circu latnona n. 2017Mar 08;137 (1):1 0-19. Not Available [facility] (Lab) [address] [facility], [place], [address], 08/30/2024 07:34:29 08/30/19 25 08/29/2024 HEMOG LOBIN A1C hemoglobin A1C 5.8 % 4.0-5. 6 high The Ameri can Diabe an Assoc iatio n recom mends that a prima ry goal of thera py shoul d be a HBA1C of < 7% and that physi cians shoul d reeva luate the treat ment regim en in patie nts with HBA1C value s consi stent ly > 8%. <5.7% Cici l 5.7 - 6.4% Incre ased risk for diabe an >=6.5 % Diagn ostic of diabe an <7.0% Goal of thera py >8.0% Actio n sugge sted Not Available [facility] (Lab) [address] [facility], [place], [address], 08/30/2024 07:34:30 08/30/19 25 08/29/2024 CT/GC AND TRICH OMONA S VAGIN SAMRA (RRNA ), SWAB chlamydia trachomatis, PCR Negati ve negati ve Not Available [facility] (Lab) [address] [facility], [place], [address], 08/30/2024 12:52:47 08/30/19 25 08/29/2024 CT/GC AND TRICH OMONA S VAGIN SAMRA (RRNA ), SWAB neisseria gonorrhoeae, PCR Negati ve negati ve Not Available [facility] (Lab) [address] [facility], [place], [address], 08/30/2024 12:52:47 08/30/19 25 08/29/2024 CT/GC AND TRICH OMONA S VAGIN SAMRA (RRNA ), SWAB trichomonas vaginalis ribosomal RNA (rrna) Negati ve negati ve Not Available [facility] (Lab) [address] [place], [address], 08/30/2024 12:52:47 09/04/19 25 09/03/2024 CULTU RE: URINE result report SEE RESULT S BELOW Test: Cultu re: Urine Speci men Sourc e: Urine Voide d Speci men Type: Urine Speci men Date: 2024 1016 Resul t Date: 025 0310 Resul t Statu s: Final resul t Abnor mal: No Resul ting Lab: [facility] [address] [facility] [address] Tel: CULTU RE ----- ----- ----- --- No growt h in 1 day (dete ction level of 10,00 0 colon ies / ml.) Not Available [facility] (Lab) [address] [facility], [place], [address], 09/05/2024 04:14:19 Result Notes None recorded. Problems Name Problem SNOMED Code Status Onset Date Resolution Date Notes Provider Name and Address Organization Details Recorded Time Screenin g for malignan t neoplasm of cervix Completed 201112/07/2011 Screenin g for malignan t neoplasm s of the cervix;R ecorded Elsewher e: No [facility] ource: EHR Service Coordinator Elderly Facility lindsey: N Practi ce ID: 0001 King lable Time: 10:15:00 AM Not Available [facility] 0 21:20:32 Speciali 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 ion Completed 201111/22/2011 Gynecolo gical Examinat ion;Taj rded Elsewher e: No Locat ion: [facility] S ource: EHR Service Coordinator Elderly Facility lindsey: N Practi ce ID: 0001 King lable Time: 10:15:00 AM Not Available [facility] 0 21:20:35 Family planning surveill ance Completed 201111/22/2011 Contrace ptive surveill ance, unspecif ied;Taj rded Elsewher e: No Locat ion: [facility] S ource: EHR Service Coordinator Elderly Facility lindsey: N Practi ce ID: 0001 King lable Time: 10:15:00 AM Not Available [facility] 0 21:20:35 Removal of intraute rine device Completed 201112/07/2011 REMOVAL OF IUD;Taj rded Elsewher e: No Locat ion: [facility] S ource: EHR Service Coordinator Elderly Facility lindsey: N Practi ce ID: 0001 King lable Time: 03:45:00 PM Not Available [facility] 0 21:20:36 Vaginiti s and vulvovag initis Active 2012 Vaginiti s;Record ed Elsewher e: No Locat ion: [facility] S ource: EHR Service Coordinator Elderly Facility lindsey: N Practi ce ID: 0001 King lable Time: 05:45:00 PM Not Available [facility] 0 21:20:33 Dysfunct ional uterine bleeding Active 2012 Other disorder s of menstrua tion and other abnormal bleeding from female genital tract;Re corded Elsewher e: No Locat ion: [facility] S ource: EHR Service Coordinator Elderly Facility lindsey: N Sototi ce ID: 0001 King lable Time: 08:00:00 AM Not Available [facility] 0 21:20:31 Female genital organ symptoms 500706554 Active 2012 Unspecif ied symptom associat ed with female genital organs;R ecorded Elsewher e: No Locat ion: [facility] S ource: EHR Service Coordinator Elderly Facility lindsey: N Practi ce ID: 0001 King lable Time: 08:00:00 AM Not Available [facility] 0 21:20:34 Family planning surveill ance Active 2012 Surveill ance of other contrace ptive method;R ecorded Elsewher e: No Locat ion: [facility] S ource: EHR Service Coordinator Elderly Facility lindsey: N Sototi ce ID: 0001 King lable Time: 04:45:00 PM Not Available [facility] 0 21:20:34 Atypical squamous cells on cervical Papanico laou smear cannot exclude high grade squamous intraepi thelial lesion 163922872 Active 2013 Papanico laou smear of cervix with atypical squamous cannot exclude high grade squamous intraepi thelial lesion (ASC-H); Recorded Elsewher e: No Locat ion: [facility] Sototi ce ID: 0001 King lable Time: 04:45:00 PM Not Available [facility] 0 21:20:33 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 2013 Moderate dysplasi a of cervix;R ecorded Elsewher e: No Locat ion: [facility] N Sototi ce ID: 0001 King lable Time: 05:00:00 PM Not Available [facility] 0 21:20:31 Pre-surg luis alberto evaluati on Active 2013 Pre-oper ative examinat ion, unspecif ied;Prac sal ID: 0001 Not Available [facility] 0 21:20:38 Cytologi c finding Active 2013 Pap Abnormal HGSIL;Pr actice ID: 0001 Not Available [facility] 0 21:20:39 Postoper ative follow-u p visit Active 2013 Follow-u p examinat ion, followin g unspecif ied surgery; Recorded Elsewher e: No Locat ion: [facility] S ource: EHR Service Coordinator Elderly Facility lindsey: N Practi ce ID: 0001 King lable Time: 05:30:00 PM Not Available [facility] 0 21:20:32 Irregula r periods 53570438 Active 2013 Irregula r menstrua l cycle;Re corded Elsewher e: No Locat ion: [facility] S ource: EHR Service Coordinator Elderly Facility lindsey: N Practi ce ID: 0001 King lable Time: 05:00:00 PM Not Available [facility] 0 21:20:32 Speciali 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 Active 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;Taj rded Elsewher e: No Locat ion: [facility] S ource: EHR Service Coordinator Elderly Facility lindsey: N Practi ce ID: 0001 King lable Time: 06:00:00 PM Not Available [facility] 0 21:20:32 Screenin g for malignan t neoplasm of cervix Active 2013 Screenin g for malignan t neoplasm s of the cervix;R ecorded Elsewher e: No Locat ion: [facility] S ource: EHR Service Coordinator Elderly Facility lindsey: N Practi ce ID: 0001 King lable Time: 06:00:00 PM Not Available [facility] 0 21:20:33 Overweig ht 687273330 Active 2013 Overweig ht;Recor ded Elsewher e: No Locat ion: [facility] S ource: EHR Service Coordinator Elderly Facility lindsey: N Practi ce ID: 0001 King lable Time: 06:00:00 PM Not Available [facility] 0 21:20:35 Epidermo id cyst of skin 472694988 Active 2014 Sebaceou s cyst;Rec orded Elsewher e: No Locat ion: [facility] S ource: EHR Service Coordinator Elderly Facility lindsey: N Practi ce ID: 0001 King lable Time: 11:45:00 AM Not Available [facility] 0 21:20:34 Infectio n screenin g Active 2014 Encounte r for screenin g for oth infec/pa rastc diseases ;Recorde d Elsewher e: No Locat ion: [facility] S ource: EHR Service Coordinator Elderly Facility lindsey: N Practi ce ID: 0001 King lable Time: 08:30:00 AM Not Available [facility] 0 21:20:32 Low risk human papillom avirus deoxyrib onucleic acid detected in specimen from cervix [id number] 606727 Active 2015 Cervical low risk HPV DNA test positive ;Recorde d Elsewher e: No Locat ion: [facility] S ource: EHR Service Coordinator Elderly Facility lindsey: N Practi ce ID: 0001 King lable Time: 05:30:00 PM Not Available [facility] 0 21:20:33 Pelvic and perineal pain 235993719 Active 2016 Pelvic pain;Rec orded Elsewher e: No Locat ion: [facility] S ource: EHR Service Coordinator Elderly Facility lindsey: N Practi ce ID: 0001 King lable Time: 05:45:00 PM Not Available [facility] 0 21:20:31 Syphilis test finding 098808733 Active 2016 Encounte r for STD screenin g;Record ed Elsewher e: No Locat ion: [facility] S ource: EHR Service Coordinator Elderly Facility lindsey: N Practi ce ID: 0001 King lable Time: 05:45:00 PM Not Available [facility] 0 21:20:31 Finding of general energy 823690879 Active 2016 Fatigue; Recorded Elsewher e: No Locat ion: [facility] S ource: EHR Service Coordinator Elderly Facility lindsey: N Practi ce ID: 0001 King lable Time: 05:45:00 PM Not Available [facility] 0 21:20:33 Procedur e by method Active 2016 Encounte r for other general counseli ng and advice on contrace ption;Re corded Elsewher e: No Locat ion: [facility] S ource: EHR Service Coordinator Elderly Facility lindsey: N Practi ce ID: 0001 King lable Time: 05:45:00 PM Not Available [facility] 0 21:20:[address] Concept Active 2016 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 ;Recorde d Elsewher e: No Locat ion: [facility] S ource: EHR Service Coordinator Elderly Facility lindsey: N Practi ce ID: 0001 King lable Time: 05:45:00 PM Not Available [facility] 0 21:20:34 Pregnanc y test negative 921901535 Active 2016 Encounte r for pregnanc y test, result negative ;Practic e ID: 0001 Not Available [facility] 0 21:20:30 Atypical squamous cells on vaginal Papanico laou smear cannot exclude high grade squamous intraepi thelial lesion 423273199 Active 2016 Atyp squam cell not excl hi grd intrepit h lesn cyto smr vagn;Rec orded Elsewher e: No Locat ion: [facility] S ource: EHR Service Coordinator Elderly Facility lindsey: N Practi ce ID: 0001 King lable Time: 05:00:00 PM Not Available [facility] 0 21:20:33 Urinary tract infectio us disease 98124323 Active 2016 Urinary tract infectio n, site not specifie d;Practi ce ID: 0001 Not Available [facility] 0 21:20:30 Evaluati on finding Active 2016 Hematuri a, unspecif ied;Prac sal ID: 0001 Not Available [facility] 0 21:20:[address] Concept Active 2016 Anxiety disorder , unspecif ied;Prac sal ID: 0001 Not Available [facility] 0 21:20:30 Atypical squamous cells of undeterm ined signific ance on cervical Papanico laou smear 016206840 Active 2017 Atyp squam cell of undet signfc cyto smr crvx (ASC-US) ;Practic e ID: 0001 Not Available [facility] 0 21:20:[address] Concept Active 2018 Encntr for swing grinder exam (general ) (routine ) w/o abn findings ;Practic e ID: 0001 Not Available [facility] 0 21:20:[address] Concept Active 2018 Encntr for general adult medical exam w/o abnormal findings ;Recorde d Elsewher e: No Locat ion: [facility] S ource: EHR Service Coordinator Elderly Facility lindsey: N Practi ce ID: 0001 King lable Time: 09:45:00 AM Not Available [facility] 0 21:20:31 Surveill ance of vaginal hormone releasin g ring method of contrace ption Active 2018 Encounte r for surveill ance of vaginal ring hormonal contrace ptive device;R ecorded Elsewher e: No Locat ion: [facility] S ource: EHR Service Coordinator Elderly Facility lindsey: N Sototi ce ID: 0001 King lable Time: 09:45:00 AM Not Available [facility] 0 21:20:31 Endometr iosis (clinica l) 176456935 Active 2018 Endometr iosis, unspecif ied;Prac sal ID: 0001 Not Available [facility] 0 21:20:30 Pain in female genitali a Active 2018 Dysmenor td, unspecif ied;Prac sal ID: 0001 Not Available [facility] 0 21:20:30 Human papillom avirus deoxyrib onucleic acid detected , high risk on cervical specimen 747726536 Active 2018 Cervical high risk HPV DNA test positive ;Practic e ID: 0001 Not Available [facility] 0 21:20:31 Contrace ption care manageme nt Active 2018 Encounte r for contrace ptive manageme nt, unspecif ied;Taj rded Elsewher e: No [facility]: EHR Service Coordinator Elderly Facility lindsey: N Practi ce ID: 0001 King lable Time: 08:45:00 AM Not Available [facility] 0 21:20:34 Insertio n of intraute rine contrace ptive device Active 2018 Encounte r for insertio n of intraute rine contrace ptive device;P ractice ID: 0001 Not Available [facility] 0 21:20:31 Contrace ptive sheath status 362119232 Active 2018 Encounte r for routine checking of intraute rine contrace p dev;Prac sal ID: 0001 Not Available [facility] 0 21:20:31 Problem Notes None recorded. Procedures Surgical History Date Name Laterality Status Provider Name and Address Organization Details Recorded Time 024 Date of Last Pap Smear completed Julia Wu [facility] 08/29/2024 16:10:41 008 loop electrosurgical excision procedure completed NICOL Espitia [address], [place], [address], [facility] 08/25/2023 16:35:02 997 laparoscopic excision of pelvic endometriosis completed NICOL Espitia [address], [place], [address], [facility] 08/25/2023 16:35:21 996 Knee arthroscopy/surger y completed Ayanna Griffin [facility] 08/25/2023 16:25:26 Imaging Results None recorded. Procedure Notes None recorded. Medical Equipment None Reported. Allergies Allergen ID Allergen Name Allergen Category Reaction Reaction Severity Criticality Documentation Date Start Date Code Code System Note Provider Name and Address Organization Details Recorded Time 66323 latex environme nt,medica tion Not available Not available Not available 08/25/2023 44025 91 RxNorm Ayanna Griffin [facility] 16:18:41 Medications Name Sig Start Date Stop Date Status Note LastModified by Organization Details LastModified Time Mirena 21 mcg/24 hr (up to 8 years) 52 mg intrauter ine device 1 iud every 5 years 2018 active Prescrib ed Elsewher e: No Locat ion: [facility] odify By: Encount er DateTime : 06/17/19 01:00:00 PM Not Available Not Available Not Available metronida zole 0.75 % (37.5 mg/5 gram) vaginal gel 02/20 completed Not Available Not Available Not Available Zithromax Z-Price 250 mg tablet take 2 tablet (500MG) by oral route every day for 1 day then 1 tablet (250 mg) by oral route once daily for 4 days 09/30 completed Prescrib ed Elsewher e: No [facility] odify By: gmedical Encount er DateTime : 09/27/19 13 12:51:50 PM Not Available Not Available Not Available ciproflox acin 500 mg tablet TAKE 1 TABLET BY MOUTH EVERY 12 HOURS 02/20 completed Not Available Not Available Not Available amoxicill in 500 mg tablet take 1 tablet by oral route every 8 hours for 10 days 01/24 completed Prescrib ed Elsewher e: No Locat ion: [facility] odify By: tony Mora ter DateTime : 07/09/19 15 09:18:28 AM Not Available Not Available Not Available cefadroxi l 500 mg capsule take 1 capsule by oral route every 12 hours for 10 days 07/12 completed Prescrib ed Elsewher e: No [facility] By: bob amezcua DateTime : 07/04/19 15 11:45:00 AM Not Available Not Available Not Available Depo-Prov era 150 mg/mL intramusc ular suspensio n inject 1 millilit er (150MG) by intramus cular route every 3 months 04/17 completed Prescrib ed Elsewher e: No Locat ion: [facility] odify By: cj amezcua DateTime : 12/20/19 13 02:42:19 PM Not Available Not Available Not Available Zoloft 50 mg tablet take 1 tablet by oral route every day 01/04 completed Prescrib ed Elsewher e: No Locat ion: [facility] odify By: bob Burak berthaer DateTime : 12/08/19 17 05:00:00 PM Not Available Not Available Not Available betametha sone valerate 0.1 % topical cream apply by topical route every day a thin layer to the affected area(s) 09/22 completed Prescrib ed Elsewher e: No Locat ion: [facility] odify By: cj Webb ncounter DateTime : 03/08/19 13 02:15:00 PM Not Available Not Available Not Available lisinopri l 10 mg tablet TAKE 1 TABLET BY MOUTH EVERY DAY active Not Available Not Available No t Available Valtrex 500 mg tablet take 1 tablet by oral route 2 times every day for 10 days 09/12 completed Prescrib ed Elsewher e: No Locat ion: [facility] odify By: cmedical Encount er DateTime : 09/04/19 14 12:55:17 PM Not Available Not Available Not Available Zoloft 100 mg tablet take 1 tablet by oral route every day 05/08 completed Prescrib ed Elsewher e: No Locat ion: [facility] odify By: [email or web address] Encount er DateTime : 01/26/20 17 12:07:41 PM Not Available Not Available Not Available Zoloft 25 mg tablet take 1 tablet by oral route every day 06/10 completed Prescrib ed Elsewher e: No Locat ion: [facility] odify By: [email or web address] z Encoun ter DateTime : 01/25/20 15 08:30:00 AM Not Available Not Available Not Available multivita min capsule take 1 capsule by oral route every day 08/15 completed Prescrib ed Elsewher e: Yes Loca tion: [facility] odify By: cmedical Encount er DateTime : 05/08/19 14 05:00:00 PM Not Available Not Available Not Available Ortho Tri-Cycle n (28) 0.18 mg(7)/0.2 15mg(7)/0 .25 mg(7)-0.0 35 mg tablet take 1 tablet by oral route every day 09/22 completed Prescrib ed Elsewher e: No Locat ion: [facility] odify By: [email or web address] amezcua DateTime : 08/25/19 13 05:45:00 PM Not Available Not Available Not Available Bactrim DS 800 mg-160 mg tablet take 1 tablet by oral route every 12 hours 12/07 completed Prescrib ed Elsewher e: No Locat ion: [facility] odify By: sallie graff DateTime : 09/24/19 17 04:45:00 PM Not Available Not Available Not Available NuvaRing 0.12 mg-0.015 mg/24 hr vaginal insert 1 vaginal ring by vaginal route every month leave in place for 3 weeks, remove for 1 week 06/16 completed Prescrib ed Elsewher e: No Locat ion: [facility] odify By: [email or web address] Encount er DateTime : 04/14/19 19 03:15:00 PM Not Available Not Available Not Available nitrofura ntoin monohydra te/macroc rystals 100 mg capsule take 1 capsule (100 MG) by oral route every 12 hours with food for 7 days 08/29 completed Not Available Not Available Not Available omeprazol e active Not Available Not Available Not Available Claritin active Not Available Not Avai lable Not Available Seasonale (91) 0.15 mg-30 mcg tablets,3 month dose pack take 1 tablet by oral route every day 09/22 completed Prescrib ed Elsewher e: No Locat ion: [facility] odify By: [email or web address] DateTime : 06/02/19 13 10:32:06 AM Not Available Not Available Not Available Vitals Date Recorded Systolic And Diastolic Provider Name and Address Organization Details Last Updated DateTime 08/25/2023 142/80 mm[Hg] Tessa Barrow [facility] 08/25/2023 17:42:17 Date Recorded Body weight Body mass index (BMI) Body height Systolic And Diastolic Provider Name and Address Organization Details Last Updated DateTime 08/25/2023 11447.4 g 31.9 kg/m2 172.72 cm 158/87 mm[Hg] Ayanna Griffin [facility] 08/25/2023 16:17:10 Date Recorded Body height Body mass index (BMI) Body weight Systolic And Diastolic Systolic And Diastolic Provider Name and Address Organization Details Last Updated DateTime 08/29/2024 172.72 cm 31.6 kg/m2 60934.49 g 162/110 mm[Hg] 186/112 mm[Hg] [facility] 16:51:10 Date Recorded Body height Provider Name an d Address Organization Details Last Updated DateTime 10/25/2023 172.72 cm Lorie Moellerer [facility] 10/25/2023 11:04:06 Date Recorded Body height Provider Name an d Address Organization Details Last Updated DateTime 02/21/2024 172.72 cm [facility] 02/21/2024 17:03:24 Social History Question Answer Notes LastModified by Organizat ion Details LastModified Time Tobacco Smoking Status Current Every Day Smoker Ayanna Griffin [facility] 08/25/2023 16:24:36 Are You Blind Or Do You Have Difficulty Seeing? No Information n ot available 08/25/2023 In The 14 Days Before Symptom Onset, Have You Had Close Contact With A Laboratory-confirm ed COVID-19 While That Case Was Ill? No [email or web address] Information n ot available 08/25/2023 In The 14 Days Before Symptom Onset, Have You Had Close Contact With A Person Who Is Under Investigation For COVID-19 While That Person Was Ill? No [email or web address] Information not available 08/25/2023 Have You Been To An Area Known To Be High Risk For COVID-19? No [email or web address] Information not available 08/25/2023 Are You Deaf Or Do You Have Serious Difficulty Hearing? No Information not available 08/25/2023 Do You Use Your Seat Belt Or Car Seat Routinely? Yes [email or web address] Information not available 08/25/2023 Do You Have Smoke And Carbon Monoxide Detectors In Your Home? Yes [email or web address] Information not available 08/25/2023 How Much Tobacco Do You Smoke? 1 PPW [email or web address] Information not available 02/21/2024 Do You Use Sunscreen Routinely? Yes [email or web address] Information not available 08/25/2023 Do You Have Difficulty Walking Or Climbing Stairs? No [email or web address] Information not available 08/25/2023 Sex: Unknown Functional Status Question Answer Note LastModified by Organization D etails LastModified Time Are you able to care for yourself independently? Yes [email or web address] Information not available 08/25/2023 Do you have difficulty dressing, bathing, grooming, or toileting? No [email or web address] Information not available 08/25/2023 Mental Status None recorded. Family History Relationship Description Onset Age of this Age Resolved Age Notes LastModified by Organization Details LastModified Time Father Acute hepatitis [email or web address] Not available 2023 16:50:44 Father Hypertensive disorder Not available 2023 16:23:41 Maternal Grandmother Cyst of ovary [email or web address] Not available 2023 16:50:44 Notes:Mother: Hypertension Medical History Condition Response Allergies (Food, seasonal, environmental ) N Other N Breast Cancer N Drug/Latex Allergies/Reactions N Blood Transfusion N Dermatologic Disorders N Lung Disease N Defects or Inherited Disease N Breast Problem N Gestational Diabetes N Hematologic disorders N Anesthesia Complications N History of STI N Deep Vein Thrombosis N Polycystic ovary syndrome N Anxiety Disorder N Autoimmune disease N Arthritis N Infertility N Polyps N Acid Reflux (GERD) N History of abnormal pap N Cancer N Stroke N Varicosities N Neurologic/Epilepsy N Endometriosis Y High Cholesterol N Headaches Y Fibromyalgia N Kidney Disease N Heart Problems N Kidney or Bladder Problems N Thyroid Problems N GI Problems N Eating Disorder N Anemia N Art (IVF or FET) N Psychiatric Illness N Ovarian Cancer N Diabetes N Pulmonary (TB, Asthma) N Hepatitis/Liver Disease N No Past Medical History N Eczema N Urinary Tract Infection N Abuse/Domestic Violence N Asthma Y Trauma/Violence N Depression/ depression N Heart Disease N Pre-Eclampsia N Hypertension N Osteoporosis N Thrombophilias N Gynecological History Statement/Question Response Date of LMP STIs/STDs N Was last menstrual period normal Y Current Control Method IUD Age at First Child 21 Are cycles usually normal Y Sexually Active? Y Age of first menstrual cycle 10 Date of Last Pap Smear 08/25/2023 Sexual Problems? N Desired Control Method IUD LMP Unknown Obstetrics History GPAL:G 2 P 2 0 0 2 Type Value Full Term 2 Living 2 Total 2 Past Encounters Encounter ID Performer Location Encounter Start Date Encounter Closed Date Diagnosis/Indication Diagnosis SNOMED-CT Code Diagnosis ICD10 Code Diagnosis IMO Codes Diagnosis Note [id number] NICOL Espitia [place] [address] [address] 08/25/2023 15:40:13 08/25/2023 17:49:22 Gynecologic examination 31799523 Z01.419 [email or web address] IUD, will 06/16/2026p ap updategc/c t/trich testing added to papmammogr am order givenencou raged annual exam with PCProutine labs/PCPBP precaution s discussed, encouraged PCP f/uRTC in 1 yr or sooner if needed Patient advised to get an annual flu shot in the fall and she could obtain at local pharmacy. Also to obtain TDap vaccinatio n if you have not had one in the last 10 years. Recommend yearly mammograms . Encouraged monthly self breast exams. Encourage safe sexual practices, to use condoms and limit partners if not already in a monogamous relationsh ip. Engage in regular exercise. Avoid tobacco and illicit drugs. This lifestyle behavior pattern will lead to less health conditions and longer life span. If BMI greater than 25 dietary consult advised. All questions have been answered. Patient appears to understand informatio n, but if you have any questions please call or respond to this email. Night sweats 00307046 R6 1 Screening for malignant neoplasm of breast 425439540 Z12.39 Venereal d isease screening 679093056 Z11.3 [id number] Raymond Cooley MD [place] [address] [address] 10/25/2023 10:51:01 10/25/2023 11:12:13 Dysuria 90887863 R30.0 Urinary tr act infectious disease 71764556 N39.0 [id number] Raymond Cooley MD [place] [address] [address] 02/21/2024 16:50:38 02/21/2024 17:22:04 Increased frequency of urination 313821391 R35.0 Patient presents with symptoms of UTI. Unable to dip urine due to too little amount of urine collected. Urine culture was sent. Advised to drink clear fluids, Tylenol for pain and take prescribed medication s (Macrobid) as instructed .Patient encouraged to follow up within 1 week if not improving. [id number] Raymond Cooley MD [place] [address] [address] 08/29/2024 16:08:10 08/29/2024 17:07:06 Well woman health examination [id number] Z01.419 [id number] Annual gynecologi claire exam performed. Patient will come back in a year unless there are new symptoms. Suggest Calcium with Vitamin D if not eating in diet. Patient advised to get annual flu shot. Recommend yearly physicals and perform monthly breast exams. Genetic testing is available for patients with family history of cancer. Engage in safe sexual practices, use condoms. Encouraged to have daily exercise. Avoid tobacco and illicit drugs, moderation of alcohol. If BMI greater than 25 dietary consult advised. If you have any questions please call or email. mammogram- order given, pt to schedule Pap smear- UTD (2023 - WNL), will repeat in 2026 per ASCCP guidelines laboratory evaluation - ordered STI testing - requested A Mirena IUD prevents for up to 8 years, and also helps with heavy periods for up to 5 years in women who choose an IUD for control. Expires 06/16/2026. Screening mammography 24 [id number] Z12.31 [id number] Essential hypertension [id number] I10 [id number] Discussed that BP is elevated today.Ines ent states that her BP is borderline elevated at nearly every doctor's appointmen t for the past 2 years. Patient states that she does not have PCP currently. Pt denied SOB, chest pain, dizziness, palpitatio ns, severe headache. Discussed that if pt experience s these symptoms with elevated BP then she needs to go to the ER.Recomme nded that patient obtain BP cuff and check BP twice daily and record readings. Instructed patient to call with readings in one week.PCP list given. Encouraged patient to make an appointmen t with a PCP.Discus sed starting on lisinopril 10 mg PO once daily for hypertensi on. Risks, benefits, and AEs reviewed. Pt verbalized understand ing.RTO in one month for BP and medication check. Venereal d isease screening [id number] Z11.3 [id number] Pt requested STI testing.Di scussed the various types of STDs, related symptoms and the potential consequenc es (including effects on fertility) of STD infections . Reviewed ways to limit exposure and prevention techniques . Health Concerns Section Related Observation LastModified by Organization Detai ls LastModified Time None Recorded Concern Status LastModified by Organization Details LastModified Time None Recorded Advance Directives Directive None Recorded Payers Insurance Date Sequence Insurance Name Policy Number Policy [place] Covered Member ID Jefferson Member ID Guarantor Name 08/26/2024 1 [id number] [id number] Tiffanie Anderson [id number] Tiffanie Anderson Notes Date Note Type Note Provider Name and Address Organization Details Recorded Time 08/25/19 24 text/ht ml Annual GYNReported by PatientGenitourinary symptomsFor menstrual cycle, patient reportsnormal menses. For urinary symptoms, patient reportsno hematuriaandno incontinence. For vulva, patient reportsno genital lesion. For vagina, patient reportsnormal vaginal discharge.Breast symptomsFor breast, patient reportsno breast pain,no breast lump, andno nipple discharge.ContraceptionFor current contraception, patient reportssatisfied with current contraceptionandintrauterine device (iud)(mirena iud).Endocrine symptomsFor sexual complaints, patient reportsno sexual complaints,no pain during intercourse, andnormal libido. For menopausal symptoms, patient reportsno menopausal symptomsandnormal vaginal lubrication.Psychological symptomsFor psychological symptoms, patient reportsno depression,no anxiety, andno pmdd.Preventative measuresFor preventive measures, patient reportsencourage self breast examination,encourage regular exercise,encourage no tobacco use, andencourage regular mammograms starting age 40.43yoWWEh/o LEEP 2008last pap around 2019, normal per pt Mirena IUD inserted 06/16/2018 mammogram - none yet has noticed a few hot flashes, would like hormone testing today h/o endometriosis, diagnostic lap x 2 in 1996 and 2000 Tessa hector, [facility] 08/25/2023 17:42:22 02/21/20 24 text/ht ml Patient here with c/o urinary frequency, pelvic pressure, bloating, urinary hesitancy x 2 days. Patient denies fever or vaginal itching, odor, or abnormal bleeding. SARAVANAN JOHNSON NP [address], [place], [address], [facility] 02/21/2024 17:19:30 08/30/19 25 text/ht ml Annual GYNReported by PatientHistoryFor history, patient reportsno gynecologic complaints.Genitourinary symptomsFor menstrual cycle, patient reportsnormal menses. For urinary symptoms, patient reportsno hematuriaandno incontinence. For vulva, patient reportsno genital lesion. For vagina, patient reportsnormal vaginal discharge.Breast symptomsFor breast, patient reportsno breast pain,no breast lump, andno nipple discharge.ContraceptionFor current contraception, patient reportssatisfied with current contraceptionandintrauterine device (iud).Endocrine symptomsFor sexual complaints, patient reportsno sexual complaints,no pain during intercourse, andnormal libido. For menopausal symptoms, patient reportsno menopausal symptomsandnormal vaginal lubrication.Psychological symptomsFor psychological symptoms, patient reportsno depression,no anxiety, andno pmdd.Preventative measuresFor preventive measures, patient reportsencourage self breast examination,encourage regular exercise,encourage no tobacco use, andencourage regular mammograms starting age 40. Patient presents for annual well woman exam. SARAVANAN JOHNSON NP [address], [place], [address], [facility] 08/29/2024 17:06:01 OBGyn Episode Ob Episode Information Episode Created Date Number of Fetuses Patient Bloodtype Patient rh Status Prepregnancy Weight lbs Domestic Partner Domestic Partner Phone Father Name [employer]man [employer] [id number] Status 08/25/19 24 1 CLOSED Fetus Data First Name Last Name Admitted to NICU Weight (g) Sex Living Outcome Pediatric Complications Fetus ID Race Codes Race Delivery Type 2721.55 2 F Full Term [id number] Vaginal Delivery Renan Calculation Initial Renan Date Initial Exam Date Initial Exam Provider Initial Ultrasound Date Last Menstrual Period Date Ultra Sound Weeks Gestation 0 Eighteen To Twenty Week Renan Update Ultra Sound Date Fundal Height At Umbil Quickening Date Ultra Sound Latest Weeks Gestation Final Renan Confirmed By Final Renan Confirmed Date Final Renan Date Ultra Sound Latest Days Gestation 0 0 Menstrual History Last Menstrual Date Menses Monthly On Bcp Conception Prior Menses Frequency Hcg Plus Date Menarche Onset Age Delivery Information Delivery Date Delivery Type Labor Anesthesia Weeks Gestation Incision Type Labor Labor Length Hrs Delivered By Post Complications Tubal Sterilization Discharge Date Comments 2 Discharge Information Feeding Method Contraceptive Method Maternal HG B and HCT Levels Ob Episode Information Episode Created Date Number of Fetuses Patient Bloodtype Patient rh Status Prepregnancy Weight lbs Domestic Partner Domestic Partner Phone Father Name Crewman [employer] [id number] Status 08/25/19 24 1 CLOSED Fetus Data First Name Last Name Admitted to NICU Weight (g) Sex Living Outcome Pediatric Complications Fetus ID Race Codes Race Delivery Type 2409.48 0704 F Full Term [id number] Vaginal Delivery Renan Calculation Initial Renan Date Initial Exam Date Initial Exam Provider Initial Ultrasound Date Last Menstrual Period Date Ultra Sound Weeks Gestation 0 Eighteen To Twenty Week Renan Update Ultra Sound Date Fundal Height At Umbil Quickening Date Ultra Sound Latest Weeks Gestation Final Renan Confirmed By Final Renan Confirmed Date Final Renan Date Ultra Sound Latest Days Gestation 0 0 Menstrual History Last Menstrual Date Menses Monthly On Bcp Conception Prior Menses Frequency Hcg Plus Date Menarche Onset Age Delivery Information Delivery Date Delivery Type Labor Anesthesia Weeks Gestation Incision Type Labor Labor Length Hrs Delivered By Post Complications Tubal Sterilization Discharge Date Comments 6 Discharge Information Feeding Method Contraceptive Method Maternal HG B and HCT Levels
== END 2025-02-01 10:49 | disposition home or self-care (01) ==
LOC: ANHFOHIMG 11:13
PROVIDERS: PCP Student in an Organized Health Care Education/Training Program; Visit Provider Student in an Organized Health Care Education/Training Program
DX: Z12.31 Encounter for screening mammogram for malignant neoplasm of breast (principal); R92.8 Other abnormal and inconclusive findings on diagnostic imaging of breast
CPT/HCPCS: 77063; 77067